=== PATIENT | female | born 1980 | race Caucasian/White ===

== ENCOUNTER 2018-10-30 08:15 | Emergency (ER) | payer OTHER, BC ==
[2018-10-30 08:19] VITALS: BMI 28.3
[2018-10-30 08:23] VITALS: BP 124/79; PULSE 67; TEMP 98.5
--- NOTE | 2018-10-30 09:11 | PDOC ---
History of Present Illness - General Chief Complaint: Injury Stated Complaint: RIGHT EYE VISION CHANGE Time Seen by Provider: 10/30/18 08:27 - History of Present Illness Initial Comments: 10/30/18 09:05 30 years [place] past medical history presents to the emergency department with a mechanical fall at work. Patient was walking holding a coffee cup slipped and fell backwards to the back of her head coffee cup flew in the air and hit her right eye there was no loss of consciousness to his no prodrome prior to the event complaining of a mild 2 out of 10 headache and for 10 minutes had a dark line in her right field of vision which has since resolved Symptom was mild intermittent and self resolving Past History - Past Medical History Allergies/Adverse Reactions: Allergies Allergy/AdvReac Type Severity Reaction Status Date / Time No Known Allergies Allergy Verified 10/30/18 08:16 Home Medications: Ambulatory Orders No Home Medications 0 dose .ROUTE UTDICT 05/11/12 COPD: No Other medical history: DENIES - Immunization History Td Vaccination: Yes Immunization Up to Date: (UNSURE) - Suicide/Smoking/Psychosocial Hx Smoking Status: No Smoking History: Never smoked Number of Cigarettes Smoked Daily: 0 Hx Alcohol Use: No Drug/Substance Use Hx: No Substance Use Type: None Hx Substance Use Treatment: No Review of Systems - Review of Systems Comments:: 10/30/18 09:05 ROS: A complete review of 10 out of 10 review of systems is taken and is negative apart from what is previously mentioned below and in the HPI. *Physical Exam - Vital Signs Last Vital Signs Temp Pulse Resp BP Pulse Ox 98.5 F 67 18 124/79 100 10/30/18 08:16 10/30/18 08:16 10/30/18 08:16 10/30/18 08:16 10/30/18 08:16 - Physical Exam Comments: 10/30/18 09:07 Vitals: Triage Vital signs reviewed General Appearance: no acute distress, well nourished well developed, Head: Atraumatic, Eyes: Pupils equal reactive round, extraocular movement intact visual acuity 20/ 20 bilaterally Throat: Posterior oropharynx without erythema, mucous membranes moist, Neck: Supple;No Nucal rigidity Extremities: Full range of motion to all extremities, no cyanosis, clubbing, or edema Skin: Warm and dry, no rashes or lesions, no rash, no petechiae Neuro: AOX3; Cranial Nerves 2-12 grossly intact, Strength intact to all extremities, Sensation intact to all extremities,gait normal Psych: normal mood, normal affect Moderate Sedation - Procedure Monitoring Vital Signs: Procedure Monitoring Vital Signs Temperature 98.5 F 10/30/18 08:16 Pulse Rate 67 10/30/18 08:16 Respiratory Rate 18 10/30/18 08:16 Blood Pressure 124/79 10/30/18 08:16 O2 Sat by Pulse Oximetry (%) 100 10/30/18 08:16 Medical Decision Making - Medical Decision Making 10/30/18 09:08 30 years old with mechanical trip and fall minor head injury well-appearing normal neurologic examination and this time No indication for head CT based on [place] head CT rules She had decision-making patient in agreement CAT scan not required at this time Regarding floater likely secondary to transient eye trauma given normal ocular examination here in the emergency department and resolution of symptoms no emergent intervention necessary at this time patient will follow up with ophthalmology should the symptoms return Very strict head injury and concussion instructions discussed with patient. She' ll follow up with neurology if no improvement mild headache within 1 week Findings, need for follow-up and strict return instructions discussed with patient. *DC/Admit/Observation/Transfer Diagnosis at time of Disposition: Concussion Qualifiers: Encounter type: initial encounter Loss of consciousness presence/duration: without LOC Qualified Code(s): S06.0X0A - Concussion without loss of consciousness, initial encounter Floaters Qualifiers: Laterality: right Qualified Code(s): H43.391 - Other vitreous opacities, right eye - Discharge Dispostion Disposition: HOME Condition at time of disposition: Stable Decision to Admit order: No - Referrals Referrals: Emerson Rodrigez [Primary Care Provider] - Rudolph Enamorado MD [Staff Physician] - Jarrett Benavides MD [Staff Physician] - - Patient Instructions Printed Discharge Instructions: Concussion Additional Instructions: Rest, drink plenty of fluids. Avoid activities which worsened headache. Return to ED immediately for any severe worsening headache persistent vomiting change in behavior weakness numbness. Tonight have someone wake your from sleep every 4 hours to ensure your arousable. If symptoms of concussion persist for longer than 1 week follow-up with neurology. If any visual changes recur follow-up with ophthalmology. Return to ED for any concerns. - Post Discharge Activity Forms/Work/School Notes: Back to Work
== END 2018-10-30 09:19 | disposition home or self-care (01) ==
LOC: FER 08:15
DX: S06.0X0A Concussion without loss of consciousness, initial encounter (principal); H43.391 Other vitreous opacities, right eye; W18.39XA Other fall on same level, initial encounter; Y93.89 Activity, other specified; Y92.89 Other specified places as the place of occurrence of the external cause
CPT/HCPCS: 99282-25

== ENCOUNTER 2021-08-08 10:08 | Emergency (ER) | payer BC, OTHER ==
[2021-08-08 10:37] VITALS: TEMP 98.1; BMI 30.2
[2021-08-08] MEDS ORDERED: CASIRIVIMAB/IMDEVIMAB 10 ML in SODIUM CHLORIDE 100 ML IVPB ONE (10:45)
[2021-08-08 10:56] LABS: HEMATOCRIT 37.6 % (32.4-45.2); HEMOGLOBIN 12.8 GM/dL (10.7-15.3); MCH 29.6 pg (25.7-33.7); MCHC 33.9 g/dl (32.0-36.0); MEAN CELL VOLUME 87.3 fl (80-96); MEAN PLT VOLUME 8.6 fl (7.5-11.1); PLATELET COUNT 190 10^3/uL (134-434); RBC 4.31 M/mm3 (3.60-5.2); RDW 14.1 % (11.6-15.6); WHITE BLOOD COUNT 5.7 K/mm3 (4.0-10.0)
[2021-08-08 11:16] LABS: BLOOD UREA NITROGEN 5.5 mg/dL (7-18)
[2021-08-08 11:20] LABS: CREATININE 0.7 mg/dL (0.55-1.3)
[2021-08-08] MEDS ORDERED: ACETAMINOPHEN 325 MG TABLET (FP) PO ONE (12:41)
[2021-08-08 13:00] VITALS: BP 145/85; PULSE 86
[2021-08-08] MEDS ORDERED: ACETAMINOPHEN 325 MG TABLET (FP) ONE (13:02)
== END 2021-08-08 13:31 | disposition home or self-care (01) ==
LOC: JER 10:08
PROC: 3E033GC Introduction of Other Therapeutic Substance into Peripheral Vein, Percutaneous Approach (ICD-10-PCS; principal; 2021-08-08)
DX: U07.1 COVID-19 (principal); J06.9 Acute upper respiratory infection, unspecified
CPT/HCPCS: 36415; 71046-TC-FY; 80048; 85027; 99284-25; Q0240